=== PATIENT | female | born 1945 | race Caucasian/White ===

== ENCOUNTER 2021-11-15 09:18 | Emergency (ER) | payer MEDICARE ==
[~2021-11-15] VITALS: Ht 165.1 cm; Wt 88.0 kg
[2021-11-15 09:28] VITALS: BP 152/93
[2021-11-15] MEDS ORDERED: LORazepam 2 mg/ml vial IV ONE (09:40)
[2021-11-15] MEDS ORDERED: traMADol 50MG tablet PO ONE (10:45)
[2021-11-15] MEDS ORDERED: ondansetron 4mg rapidly disintigrating tab PO ONE (10:50)
[2021-11-15] MEDS ORDERED: TRAM50TA2 PO (11:02)
== END 2021-11-15 11:19 | disposition home or self-care (01) ==
LOC: ER 09:19
DX: T50.905A Adverse effect of unspecified drugs, medicaments and biological substances, initial encounter (principal); R68.2 Dry mouth, unspecified; G89.29 Other chronic pain; Y92.89 Other specified places as the place of occurrence of the external cause
CPT/HCPCS: 96374; 99283; J2060